=== PATIENT | female | born 1935 | race Caucasian/White ===

== ENCOUNTER 2017-10-22 13:04 | Inpatient (IN) | payer OTHER ==
[2017-10-22 14:38] LABS: ADD MAN DIFF? NO
[2017-10-22 14:42] LABS: WHITE BLOOD COUNT 20.5 10^3/ul (4.8-10.8)
[2017-10-22 14:42] LABS: BASOPHIL # 0.1 10^3/ul (0.0-0.1); BASOPHILS % 0.4 % (0.0-2.0); EOSINOPHILS # 0.3 10^3/ul (0.0-0.5); EOSINOPHILS % 1.6 % (0.0-7.0); HEMATOCRIT 27.7 % (37.0-47.0); HEMOGLOBIN 8.8 g/dl (12.0-16.0); LYMPHOCYTES # 1.3 10^3/ul (0.8-2.9); LYMPHOCYTES % 6.2 % (15.0-51.0); MEAN CORPUSCULAR HEMOGLOBIN 28.2 pg (29.0-33.0); MEAN CORPUSCULAR HGB CONC 31.8 g/dl (32.0-37.0); MEAN CORPUSCULAR VOLUME 88.8 fl (82.0-101.0); MONOCYTE # 1.1 10^3/ul (0.3-0.9); MONOCYTES % 5.4 % (0.0-11.0); NEUTROPHIL # 17.6 10^3/ul (1.6-7.5); NEUTROPHILS % 85.6 % (39.0-77.0); PLATELET COUNT 631 10^3/UL (140-415); RED BLOOD COUNT 3.12 10^6/ul (4.20-5.40); RED CELL DISTRIBUTION WIDTH 13.5 % (11.5-14.5)
[2017-10-22] MEDS: SOD CHLORIDE 0.9% 500 ML IV (14:47)
[2017-10-22] MEDS: CEFTRIAXONE 1 GM/50 ML (PMX) 50 ML IVPB (14:47)
[2017-10-22 14:59] LABS: ALANINE AMINOTRANSFERASE 43 IU/L (13-69); ALBUMIN 3.7 g/dl (3.3-4.9); ALBUMIN/GLOBULIN RATIO 0.92; ALKALINE PHOSPHATASE 122 IU/L (42-121); ANION GAP 16 (8-16); ASPARTATE AMINO TRANSFERASE 31 IU/L (15-46); BILIRUBIN,INDIRECT 0.5 mg/dl (0-1.1); BILIRUBIN,TOTAL 0.5 mg/dl (0.2-1.3); BLOOD UREA NITROGEN 11 mg/dl (7-20); CALCIUM 9.1 mg/dl (8.4-10.2); CARBON DIOXIDE 22 mmol/L (21-31); CHLORIDE 104 mmol/L (97-110); CREATININE 0.77 mg/dl (0.44-1.00); GLUCOSE 263 mg/dl (70-220); LIPASE 72 U/L (23-300); POTASSIUM 4.4 mmol/L (3.5-5.1); SODIUM 138 mmol/L (135-144); TOTAL PROTEIN 7.7 g/dl (6.1-8.1)
[2017-10-22 15:04] LABS: INR 1.07; PARTIAL THROMBOPLASTIN TIME 21.1 Sec (25.0-35.0); PT RATIO 1.1
[2017-10-22] MEDS: ASPIRIN 81 MG TAB PO (15:41)
[2017-10-22] MEDS: VANCOMYCIN 1 GM (PMX) 250 ML IVPB (16:11)
[2017-10-22] MEDS ORDERED: HEPARIN 1000 UNITS/ML 10 ML INJ IV (16:30)
[2017-10-22] MEDS ORDERED: NACL 0.9% 3 ML SYG IV (16:30)
[2017-10-22] MEDS ORDERED: VANCOMYCIN IV PER PHARMACY XX (16:30)
[2017-10-22] MEDS ORDERED: HEPARIN 25000 UNITS/250 ML 250 ML IV (16:30)
[2017-10-22] MEDS ORDERED: ONDANSETRON 4 MG INJ IV (16:30)
[2017-10-22] MEDS ORDERED: NITROGLYCERIN (SL) 0.4 MG TAB SL (16:30)
[2017-10-22 17:48] LABS: CREATINE KINASE 280 IU/L (23-200)
[2017-10-22 18:01] LABS: CK INDEX 1.6; CK-MB 4.53 ng/ml (0.0-2.4)
[2017-10-22] MEDS: HEPARIN 1000 UNITS/ML 10 ML INJ IV (18:06)
[2017-10-22 18:15] LABS: % IRON SATURATION 11 % SAT (22-52); IRON 24 ug/dl (35-150); TOTAL IRON BINDING CAPACITY 223 ug/dl (241-421)
[2017-10-22 18:27] LABS: HEMOGLOBIN A1C 8.4 % (0-5.9)
[2017-10-22] MEDS ORDERED: GLUCAGON 1 MG INJ IM (18:30)
[2017-10-22] MEDS ORDERED: DEXTROSE 50% 50 ML SYRINGE IV ×2 (18:30)
[2017-10-22] MEDS ORDERED: GLUCOSE GEL 15 GRAM TUBE BUCCAL (18:30)
[2017-10-22] MEDS ORDERED: GLUCOSE GEL 15 GRAM TUBE PO ×2 (18:30)
[2017-10-22 18:50] LABS: THYROID STIMULATING HORMONE 0.407 MIU/L (0.465-4.680)
[2017-10-22 20:07] LABS: CREATINE KINASE 228 IU/L (23-200)
[2017-10-22 20:25] LABS: CK INDEX 1.7; CK-MB 3.94 ng/ml (0.0-2.4)
[2017-10-22 20:27] LABS: TROPONIN-I 0.881 ng/ml (0.000-0.120)
[2017-10-22] MEDS: GABAPENTIN 100 MG CAP PO (21:00)
[2017-10-22] MEDS: RANITIDINE 150 MG TAB PO (21:00)
[2017-10-22] MEDS: CALCIUM/VITAMIN D (500/200) TAB PO (21:00)
[2017-10-22] MEDS: ATORVASTATIN 40 MG TAB PO (21:00)
[2017-10-22] MEDS: INSULIN ASPART [NOVOLOG] 3 ML PEN SC (21:07)
[2017-10-22] MEDS: PIPER-TAZO 2.25 GM (PMX) 50 ML IVPB (22:53)
[2017-10-22] MEDS: morphine 2 MG INJ IV (23:15)
[2017-10-23] MEDS: PIPER-TAZO 2.25 GM (PMX) 50 ML IVPB ×3 (05:34→22:47)
[2017-10-23] MEDS: ACETAMINOPHEN 325 MG TAB PO ×2 (05:35→21:01)
[2017-10-23] MEDS: LEVOTHYROXINE 100 MCG TAB PO (07:05)
[2017-10-23] MEDS: INSULIN ASPART [NOVOLOG] 3 ML PEN SC ×4 (08:22→21:07)
[2017-10-23] MEDS: ASPIRIN (EC) 81 MG TAB PO (08:29)
[2017-10-23] MEDS: CALCIUM/VITAMIN D (500/200) TAB PO ×2 (08:29→21:01)
[2017-10-23] MEDS: FERROUS SULFATE (EC) 325 MG TAB PO (08:29)
[2017-10-23] MEDS: GABAPENTIN 100 MG CAP PO ×3 (08:29→21:01)
[2017-10-23] MEDS: LISINOPRIL 5 MG TAB PO (08:30)
[2017-10-23] MEDS: RANITIDINE 150 MG TAB PO ×2 (08:30→21:01)
[2017-10-23 08:37] LABS: ADD MAN DIFF? NO
[2017-10-23 08:42] LABS: WHITE BLOOD COUNT 16.3 10^3/ul (4.8-10.8)
[2017-10-23 08:42] LABS: BASOPHIL # 0.1 10^3/ul (0.0-0.1); BASOPHILS % 0.4 % (0.0-2.0); EOSINOPHILS # 0.4 10^3/ul (0.0-0.5); EOSINOPHILS % 2.6 % (0.0-7.0); HEMATOCRIT 22.4 % (37.0-47.0); HEMOGLOBIN 7.2 g/dl (12.0-16.0); LYMPHOCYTES # 1.2 10^3/ul (0.8-2.9); LYMPHOCYTES % 7.2 % (15.0-51.0); MEAN CORPUSCULAR HEMOGLOBIN 27.8 pg (29.0-33.0); MEAN CORPUSCULAR HGB CONC 32.1 g/dl (32.0-37.0); MEAN CORPUSCULAR VOLUME 86.5 fl (82.0-101.0); MEAN PLATELET VOLUME 8.9 fl (7.4-10.4); MONOCYTE # 0.9 10^3/ul (0.3-0.9); MONOCYTES % 5.3 % (0.0-11.0); NEUTROPHIL # 13.6 10^3/ul (1.6-7.5); NEUTROPHILS % 83.5 % (39.0-77.0); PLATELET COUNT 529 10^3/UL (140-415); RED BLOOD COUNT 2.59 10^6/ul (4.20-5.40); RED CELL DISTRIBUTION WIDTH 13.5 % (11.5-14.5)
[2017-10-23 09:00] LABS: ANION GAP 14 (8-16); BLOOD UREA NITROGEN 10 mg/dl (7-20); CALCIUM 8.4 mg/dl (8.4-10.2); CARBON DIOXIDE 22 mmol/L (21-31); CHLORIDE 106 mmol/L (97-110); GLUCOSE 160 mg/dl (70-220); MAGNESIUM 1.9 mg/dl (1.7-2.5); POTASSIUM 4.4 mmol/L (3.5-5.1); SODIUM 138 mmol/L (135-144)
[2017-10-23 09:04] LABS: CREATINE KINASE 177 IU/L (23-200)
[2017-10-23 09:08] LABS: CK INDEX 1.9; CK-MB 3.39 ng/ml (0.0-2.4)
[2017-10-23 09:12] LABS: TROPONIN-I 0.674 ng/ml (0.000-0.120)
[2017-10-23] MEDS: VANCOMYCIN 1 GM (PMX) 250 ML IVPB (10:45)
[2017-10-23] MEDS: morphine 2 MG INJ IV ×3 (11:25→22:47)
[2017-10-23] MEDS ORDERED: HYDROCODONE/APAP (5/325) TAB PO (16:00)
[2017-10-23] MEDS ORDERED: VANCOMYCIN 750 MG in SOD CHLORIDE 0.9% 150 ML IVPB (16:00)
[2017-10-23] MEDS: HYDROCODONE/APAP (10/325) TAB PO (17:26)
[2017-10-23] MEDS: ATORVASTATIN 40 MG TAB PO (20:51)
[2017-10-23] MEDS: INSULIN GLARGINE [LANtus] 3 ML PEN SC (21:09)
[2017-10-23 23:00] LABS: IMMEDIATE SPIN CROSSMATCH 1 2
[2017-10-24 06:08] LABS: ADD MAN DIFF? NO
[2017-10-24 06:22] LABS: WHITE BLOOD COUNT 16.5 10^3/ul (4.8-10.8)
[2017-10-24 06:22] LABS: BASOPHIL # 0.1 10^3/ul (0.0-0.1); BASOPHILS % 0.4 % (0.0-2.0); EOSINOPHILS # 0.6 10^3/ul (0.0-0.5); EOSINOPHILS % 3.3 % (0.0-7.0); HEMATOCRIT 29.6 % (37.0-47.0); HEMOGLOBIN 9.8 g/dl (12.0-16.0); LYMPHOCYTES # 1.6 10^3/ul (0.8-2.9); LYMPHOCYTES % 9.8 % (15.0-51.0); MEAN CORPUSCULAR HEMOGLOBIN 29.3 pg (29.0-33.0); MEAN CORPUSCULAR HGB CONC 33.1 g/dl (32.0-37.0); MEAN CORPUSCULAR VOLUME 88.6 fl (82.0-101.0); MEAN PLATELET VOLUME 9.3 fl (7.4-10.4); MONOCYTES % 6.2 % (0.0-11.0); NEUTROPHIL # 13.1 10^3/ul (1.6-7.5); NEUTROPHILS % 79.6 % (39.0-77.0); PLATELET COUNT 548 10^3/UL (140-415); RED BLOOD COUNT 3.34 10^6/ul (4.20-5.40); RED CELL DISTRIBUTION WIDTH 13.6 % (11.5-14.5)
[2017-10-24] MEDS: ACETAMINOPHEN 325 MG TAB PO (06:34)
[2017-10-24] MEDS: LEVOTHYROXINE 100 MCG TAB PO (06:34)
[2017-10-24] MEDS: PIPER-TAZO 2.25 GM (PMX) 50 ML IVPB ×3 (06:34→21:00)
[2017-10-24 06:53] LABS: ALBUMIN 3.2 g/dl (3.3-4.9); ANION GAP 16 (8-16); BLOOD UREA NITROGEN 9 mg/dl (7-20); CALCIUM 8.6 mg/dl (8.4-10.2); CARBON DIOXIDE 24 mmol/L (21-31); CHLORIDE 103 mmol/L (97-110); CREATININE 0.67 mg/dl (0.44-1.00); GLUCOSE 161 mg/dl (70-220); MAGNESIUM 2.2 mg/dl (1.7-2.5); PHOSPHORUS 2.8 mg/dl (2.5-4.9); POTASSIUM 4.4 mmol/L (3.5-5.1); SODIUM 139 mmol/L (135-144)
[2017-10-24] MEDS: ASPIRIN (EC) 81 MG TAB PO (08:22)
[2017-10-24] MEDS: FERROUS SULFATE (EC) 325 MG TAB PO (08:23)
[2017-10-24] MEDS: GABAPENTIN 100 MG CAP PO ×3 (08:23→20:51)
[2017-10-24] MEDS: RANITIDINE 150 MG TAB PO ×2 (08:23→20:51)
[2017-10-24] MEDS: CALCIUM/VITAMIN D (500/200) TAB PO ×2 (08:23→20:51)
[2017-10-24] MEDS: morphine 2 MG INJ IV ×2 (08:24→21:59)
[2017-10-24] MEDS: INSULIN ASPART [NOVOLOG] 3 ML PEN SC ×4 (08:35→20:55)
[2017-10-24] MEDS: VANCOMYCIN 1 GM (PMX) 250 ML IVPB (10:31)
[2017-10-24] MEDS: SOD CHLORIDE 0.9% 100 ML (11:38)
[2017-10-24] MEDS: IOHEXOL 100 ML (11:38)
[2017-10-24] MEDS: morphine LIQ (10 MG/5 ML) CUP PO (18:07)
[2017-10-24] MEDS: KETOROLAC 30 MG INJ IV (19:40)
[2017-10-24] MEDS: ATORVASTATIN 40 MG TAB PO (20:51)
[2017-10-24] MEDS: INSULIN GLARGINE [LANtus] 3 ML PEN SC (20:55)
[2017-10-25] MEDS: morphine 2 MG INJ IV ×3 (04:19→22:40)
[2017-10-25] MEDS: PIPER-TAZO 2.25 GM (PMX) 50 ML IVPB ×3 (06:37→21:00)
[2017-10-25] MEDS: LEVOTHYROXINE 100 MCG TAB PO (06:37)
[2017-10-25 07:49] LABS: ADD MAN DIFF? NO
[2017-10-25 07:53] LABS: BASOPHIL # 0.1 10^3/ul (0.0-0.1); BASOPHILS % 0.4 % (0.0-2.0); EOSINOPHILS # 0.4 10^3/ul (0.0-0.5); EOSINOPHILS % 2.8 % (0.0-7.0); HEMATOCRIT 25.4 % (37.0-47.0); HEMOGLOBIN 8.3 g/dl (12.0-16.0); LYMPHOCYTES # 1.3 10^3/ul (0.8-2.9); LYMPHOCYTES % 8.3 % (15.0-51.0); MEAN CORPUSCULAR HEMOGLOBIN 28.6 pg (29.0-33.0); MEAN CORPUSCULAR HGB CONC 32.7 g/dl (32.0-37.0); MEAN CORPUSCULAR VOLUME 87.6 fl (82.0-101.0); MEAN PLATELET VOLUME 9.1 fl (7.4-10.4); MONOCYTE # 0.9 10^3/ul (0.3-0.9); MONOCYTES % 5.6 % (0.0-11.0); NEUTROPHIL # 13.2 10^3/ul (1.6-7.5); NEUTROPHILS % 82.3 % (39.0-77.0); PLATELET COUNT 551 10^3/UL (140-415); RED CELL DISTRIBUTION WIDTH 13.7 % (11.5-14.5)
[2017-10-25 08:16] LABS: ALBUMIN 2.9 g/dl (3.3-4.9); ANION GAP 11 (8-16); BLOOD UREA NITROGEN 10 mg/dl (7-20); CALCIUM 8.2 mg/dl (8.4-10.2); CARBON DIOXIDE 25 mmol/L (21-31); CHLORIDE 107 mmol/L (97-110); CREATININE 0.74 mg/dl (0.44-1.00); GLUCOSE 121 mg/dl (70-220); MAGNESIUM 2.1 mg/dl (1.7-2.5); PHOSPHORUS 2.7 mg/dl (2.5-4.9); POTASSIUM 3.9 mmol/L (3.5-5.1); SODIUM 139 mmol/L (135-144)
[2017-10-25] MEDS: GABAPENTIN 100 MG CAP PO ×3 (08:17→20:59)
[2017-10-25] MEDS: FERROUS SULFATE (EC) 325 MG TAB PO (08:17)
[2017-10-25] MEDS: RANITIDINE 150 MG TAB PO ×2 (08:17→20:59)
[2017-10-25] MEDS: ASPIRIN (EC) 81 MG TAB PO (08:17)
[2017-10-25] MEDS: CALCIUM/VITAMIN D (500/200) TAB PO ×2 (08:17→20:59)
[2017-10-25] MEDS: INSULIN ASPART [NOVOLOG] 3 ML PEN SC ×5 (08:19→20:54)
[2017-10-25 09:58] LABS: VANCOMYCIN,TROUGH 10.3 ug/ml (10.0-20.0)
[2017-10-25] MEDS: VANCOMYCIN 1 GM (PMX) 250 ML IVPB (10:44)
[2017-10-25] MEDS: SOD FERRIC GLUC COMPLX 125 MG in SOD CHLORIDE 0.9% 100 ML IVPB (15:48)
[2017-10-25] MEDS: INSULIN GLARGINE [LANtus] 3 ML PEN SC (20:53)
[2017-10-25] MEDS: ACETAMINOPHEN 325 MG TAB PO (20:59)
[2017-10-25] MEDS: ATORVASTATIN 40 MG TAB PO (20:59)
[2017-10-25] MEDS: VANCOMYCIN 750 MG in SOD CHLORIDE 0.9% 150 ML IVPB (22:40)
[2017-10-26] MEDS: LEVOTHYROXINE 100 MCG TAB PO (06:32)
[2017-10-26] MEDS: PIPER-TAZO 2.25 GM (PMX) 50 ML IVPB ×3 (06:32→22:25)
[2017-10-26] MEDS: morphine 2 MG INJ IV ×3 (06:42→20:18)
[2017-10-26] MEDS: INSULIN ASPART [NOVOLOG] 3 ML PEN SC ×7 (07:59→20:19)
[2017-10-26] MEDS: GABAPENTIN 100 MG CAP PO ×4 (08:29→20:19)
[2017-10-26] MEDS: CALCIUM/VITAMIN D (500/200) TAB PO ×2 (08:29→20:19)
[2017-10-26] MEDS: FERROUS SULFATE (EC) 325 MG TAB PO (08:29)
[2017-10-26] MEDS: ASPIRIN (EC) 81 MG TAB PO (08:29)
[2017-10-26] MEDS: RANITIDINE 150 MG TAB PO ×2 (08:33→20:19)
[2017-10-26] MEDS: SODIUM HYPOCHLORITE (1/40) 1 APPLIC BTL IRR ×2 (08:37→20:19)
[2017-10-26 09:02] LABS: ADD MAN DIFF? NO
[2017-10-26 09:21] LABS: BASOPHIL # 0.1 10^3/ul (0.0-0.1); BASOPHILS % 0.4 % (0.0-2.0); EOSINOPHILS # 0.3 10^3/ul (0.0-0.5); EOSINOPHILS % 1.8 % (0.0-7.0); HEMATOCRIT 26.5 % (37.0-47.0); HEMOGLOBIN 8.6 g/dl (12.0-16.0); LYMPHOCYTES # 1.3 10^3/ul (0.8-2.9); LYMPHOCYTES % 7.5 % (15.0-51.0); MEAN CORPUSCULAR HEMOGLOBIN 28.9 pg (29.0-33.0); MEAN CORPUSCULAR HGB CONC 32.5 g/dl (32.0-37.0); MEAN CORPUSCULAR VOLUME 88.9 fl (82.0-101.0); MEAN PLATELET VOLUME 9.3 fl (7.4-10.4); MONOCYTES % 5.8 % (0.0-11.0); NEUTROPHIL # 14.1 10^3/ul (1.6-7.5); NEUTROPHILS % 83.9 % (39.0-77.0); PLATELET COUNT 614 10^3/UL (140-415); RED BLOOD COUNT 2.98 10^6/ul (4.20-5.40); RED CELL DISTRIBUTION WIDTH 13.8 % (11.5-14.5)
[2017-10-26 09:21] LABS: WHITE BLOOD COUNT 16.8 10^3/ul (4.8-10.8)
[2017-10-26 09:30] LABS: ANION GAP 16 (8-16); BLOOD UREA NITROGEN 7 mg/dl (7-20); CALCIUM 8.5 mg/dl (8.4-10.2); CARBON DIOXIDE 24 mmol/L (21-31); CHLORIDE 106 mmol/L (97-110); CREATININE 0.71 mg/dl (0.44-1.00); GLUCOSE 102 mg/dl (70-220); MAGNESIUM 2.3 mg/dl (1.7-2.5); PHOSPHORUS 2.8 mg/dl (2.5-4.9); POTASSIUM 3.6 mmol/L (3.5-5.1); SODIUM 142 mmol/L (135-144)
[2017-10-26] MEDS: VANCOMYCIN 750 MG in SOD CHLORIDE 0.9% 150 ML IVPB ×2 (10:03→23:02)
[2017-10-26] MEDS: REGADENOSON 0.4 MG/5 ML SYG (12:35)
[2017-10-26] MEDS: SOD FERRIC GLUC COMPLX 125 MG in SOD CHLORIDE 0.9% 100 ML IVPB (16:59)
[2017-10-26] MEDS: ATORVASTATIN 40 MG TAB PO (20:19)
[2017-10-26] MEDS: INSULIN GLARGINE [LANtus] 3 ML PEN SC (20:19)
[2017-10-27] MEDS: morphine 2 MG INJ IV ×4 (00:02→16:40)
[2017-10-27] MEDS: PIPER-TAZO 2.25 GM (PMX) 50 ML IVPB ×3 (05:39→22:22)
[2017-10-27] MEDS: LEVOTHYROXINE 100 MCG TAB PO (06:43)
[2017-10-27] MEDS: INSULIN ASPART [NOVOLOG] 3 ML PEN SC ×7 (08:00→20:43)
[2017-10-27] MEDS: SODIUM HYPOCHLORITE (1/40) 1 APPLIC BTL IRR ×2 (08:02→20:55)
[2017-10-27 09:02] LABS: ADD MAN DIFF? NO
[2017-10-27 09:10] LABS: WHITE BLOOD COUNT 15.9 10^3/ul (4.8-10.8)
[2017-10-27 09:10] LABS: BASOPHIL # 0.1 10^3/ul (0.0-0.1); BASOPHILS % 0.4 % (0.0-2.0); EOSINOPHILS # 0.4 10^3/ul (0.0-0.5); EOSINOPHILS % 2.5 % (0.0-7.0); HEMOGLOBIN 8.8 g/dl (12.0-16.0); LYMPHOCYTES # 1.7 10^3/ul (0.8-2.9); LYMPHOCYTES % 10.5 % (15.0-51.0); MEAN CORPUSCULAR HEMOGLOBIN 28.7 pg (29.0-33.0); MEAN CORPUSCULAR HGB CONC 32.6 g/dl (32.0-37.0); MEAN CORPUSCULAR VOLUME 87.9 fl (82.0-101.0); MONOCYTES % 6.2 % (0.0-11.0); NEUTROPHIL # 12.7 10^3/ul (1.6-7.5); NEUTROPHILS % 79.9 % (39.0-77.0); PLATELET COUNT 555 10^3/UL (140-415); RED BLOOD COUNT 3.07 10^6/ul (4.20-5.40); RED CELL DISTRIBUTION WIDTH 14.2 % (11.5-14.5)
[2017-10-27 09:29] LABS: ANION GAP 13 (8-16); BLOOD UREA NITROGEN 7 mg/dl (7-20); CALCIUM 8.3 mg/dl (8.4-10.2); CARBON DIOXIDE 25 mmol/L (21-31); CHLORIDE 103 mmol/L (97-110); CREATININE 0.74 mg/dl (0.44-1.00); GLUCOSE 112 mg/dl (70-220); MAGNESIUM 2.1 mg/dl (1.7-2.5); PHOSPHORUS 2.7 mg/dl (2.5-4.9); POTASSIUM 4.2 mmol/L (3.5-5.1); SODIUM 137 mmol/L (135-144)
[2017-10-27 09:31] LABS: VANCOMYCIN,TROUGH 16.6 ug/ml (10.0-20.0)
[2017-10-27] MEDS: RANITIDINE 150 MG TAB PO ×2 (09:44→20:36)
[2017-10-27] MEDS: ASPIRIN (EC) 81 MG TAB PO (09:44)
[2017-10-27] MEDS: CALCIUM/VITAMIN D (500/200) TAB PO ×2 (09:44→20:37)
[2017-10-27] MEDS: FERROUS SULFATE (EC) 325 MG TAB PO (09:44)
[2017-10-27] MEDS: GABAPENTIN 100 MG CAP PO ×3 (09:44→20:36)
[2017-10-27] MEDS: VANCOMYCIN 750 MG in SOD CHLORIDE 0.9% 150 ML IVPB ×2 (12:12→22:42)
[2017-10-27] MEDS: SOD FERRIC GLUC COMPLX 125 MG in SOD CHLORIDE 0.9% 100 ML IVPB (16:35)
[2017-10-27] MEDS: CLOPIDOGREL 75 MG TAB PO (16:35)
[2017-10-27] MEDS: METOPROLOL 25 MG TAB PO (20:36)
[2017-10-27] MEDS: ATORVASTATIN 40 MG TAB PO (20:36)
[2017-10-27] MEDS: morphine LIQ (10 MG/5 ML) CUP PO (20:37)
[2017-10-27] MEDS: INSULIN GLARGINE [LANtus] 3 ML PEN SC (20:50)
[2017-10-28] MEDS: morphine LIQ (10 MG/5 ML) CUP PO ×2 (00:48→08:30)
[2017-10-28] MEDS: PIPER-TAZO 2.25 GM (PMX) 50 ML IVPB ×3 (06:20→21:07)
[2017-10-28] MEDS: LEVOTHYROXINE 100 MCG TAB PO (06:21)
[2017-10-28 07:50] LABS: ADD MAN DIFF? NO
[2017-10-28 07:51] LABS: BASOPHIL # 0.1 10^3/ul (0.0-0.1); BASOPHILS % 0.4 % (0.0-2.0); EOSINOPHILS # 0.4 10^3/ul (0.0-0.5); EOSINOPHILS % 2.5 % (0.0-7.0); HEMATOCRIT 27.2 % (37.0-47.0); HEMOGLOBIN 8.9 g/dl (12.0-16.0); LYMPHOCYTES # 1.2 10^3/ul (0.8-2.9); LYMPHOCYTES % 7.6 % (15.0-51.0); MEAN CORPUSCULAR HEMOGLOBIN 28.5 pg (29.0-33.0); MEAN CORPUSCULAR HGB CONC 32.7 g/dl (32.0-37.0); MEAN CORPUSCULAR VOLUME 87.2 fl (82.0-101.0); MEAN PLATELET VOLUME 8.7 fl (7.4-10.4); MONOCYTES % 6.4 % (0.0-11.0); NEUTROPHIL # 13.4 10^3/ul (1.6-7.5); NEUTROPHILS % 82.3 % (39.0-77.0); PLATELET COUNT 569 10^3/UL (140-415); RED BLOOD COUNT 3.12 10^6/ul (4.20-5.40)
[2017-10-28 07:51] LABS: WHITE BLOOD COUNT 16.3 10^3/ul (4.8-10.8)
[2017-10-28] MEDS: INSULIN ASPART [NOVOLOG] 3 ML PEN SC ×7 (08:00→20:50)
[2017-10-28] MEDS: METOPROLOL 25 MG TAB PO ×2 (08:30→20:44)
[2017-10-28] MEDS: RANITIDINE 150 MG TAB PO ×2 (08:30→20:44)
[2017-10-28] MEDS: ASPIRIN (EC) 81 MG TAB PO (08:30)
[2017-10-28] MEDS: FERROUS SULFATE (EC) 325 MG TAB PO (08:30)
[2017-10-28] MEDS: GABAPENTIN 100 MG CAP PO ×3 (08:30→20:44)
[2017-10-28] MEDS: CLOPIDOGREL 75 MG TAB PO (08:30)
[2017-10-28] MEDS: CALCIUM/VITAMIN D (500/200) TAB PO ×2 (08:30→20:44)
[2017-10-28 08:31] LABS: ANION GAP 16 (8-16); BLOOD UREA NITROGEN 6 mg/dl (7-20); CALCIUM 8.6 mg/dl (8.4-10.2); CARBON DIOXIDE 24 mmol/L (21-31); CHLORIDE 102 mmol/L (97-110); CREATININE 0.72 mg/dl (0.44-1.00); GLUCOSE 105 mg/dl (70-220); POTASSIUM 3.9 mmol/L (3.5-5.1); SODIUM 138 mmol/L (135-144)
[2017-10-28] MEDS: SODIUM HYPOCHLORITE (1/40) 1 APPLIC BTL IRR ×2 (08:31→20:50)
[2017-10-28 08:48] LABS: PHOSPHORUS 2.8 mg/dl (2.5-4.9)
[2017-10-28] MEDS: VANCOMYCIN 750 MG in SOD CHLORIDE 0.9% 150 ML IVPB ×2 (09:38→21:09)
[2017-10-28] MEDS: morphine 2 MG INJ IV (18:10)
[2017-10-28] MEDS: ATORVASTATIN 40 MG TAB PO (20:44)
[2017-10-28] MEDS: INSULIN GLARGINE [LANtus] 3 ML PEN SC (20:50)
[2017-10-29] MEDS: morphine 2 MG INJ IV ×4 (02:13→19:04)
[2017-10-29] MEDS: PIPER-TAZO 2.25 GM (PMX) 50 ML IVPB ×3 (05:22→21:20)
[2017-10-29] MEDS: LEVOTHYROXINE 100 MCG TAB PO (06:04)
[2017-10-29 07:15] LABS: ADD MAN DIFF? NO
[2017-10-29 07:28] LABS: WHITE BLOOD COUNT 14.3 10^3/ul (4.8-10.8)
[2017-10-29 07:28] LABS: BASOPHIL # 0.1 10^3/ul (0.0-0.1); BASOPHILS % 0.5 % (0.0-2.0); EOSINOPHILS # 0.5 10^3/ul (0.0-0.5); EOSINOPHILS % 3.2 % (0.0-7.0); HEMATOCRIT 27.9 % (37.0-47.0); LYMPHOCYTES # 1.2 10^3/ul (0.8-2.9); LYMPHOCYTES % 8.7 % (15.0-51.0); MEAN CORPUSCULAR HEMOGLOBIN 28.6 pg (29.0-33.0); MEAN CORPUSCULAR HGB CONC 32.3 g/dl (32.0-37.0); MEAN CORPUSCULAR VOLUME 88.6 fl (82.0-101.0); MEAN PLATELET VOLUME 10.3 fl (7.4-10.4); MONOCYTE # 0.9 10^3/ul (0.3-0.9); MONOCYTES % 6.3 % (0.0-11.0); NEUTROPHIL # 11.5 10^3/ul (1.6-7.5); NEUTROPHILS % 80.5 % (39.0-77.0); RED BLOOD COUNT 3.15 10^6/ul (4.20-5.40); RED CELL DISTRIBUTION WIDTH 14.3 % (11.5-14.5)
[2017-10-29 07:29] LABS: PLATELET COUNT 429 10^3/UL (140-415); POSITIVE DIFF @See below
[2017-10-29 07:43] LABS: ANION GAP 14 (8-16); BLOOD UREA NITROGEN 8 mg/dl (7-20); CALCIUM 8.5 mg/dl (8.4-10.2); CARBON DIOXIDE 22 mmol/L (21-31); CHLORIDE 106 mmol/L (97-110); CREATININE 0.69 mg/dl (0.44-1.00); GLUCOSE 116 mg/dl (70-220); PHOSPHORUS 2.9 mg/dl (2.5-4.9); POTASSIUM 4.9 mmol/L (3.5-5.1); SODIUM 137 mmol/L (135-144)
[2017-10-29] MEDS: INSULIN ASPART [NOVOLOG] 3 ML PEN SC ×7 (08:00→21:00)
[2017-10-29] MEDS: SODIUM HYPOCHLORITE (1/40) 1 APPLIC BTL IRR ×2 (08:52→21:00)
[2017-10-29] MEDS: GABAPENTIN 100 MG CAP PO ×3 (08:53→21:20)
[2017-10-29] MEDS: CALCIUM/VITAMIN D (500/200) TAB PO ×2 (08:53→21:19)
[2017-10-29] MEDS: CLOPIDOGREL 75 MG TAB PO (08:53)
[2017-10-29] MEDS: RANITIDINE 150 MG TAB PO ×2 (08:53→21:19)
[2017-10-29] MEDS: FERROUS SULFATE (EC) 325 MG TAB PO (08:53)
[2017-10-29] MEDS: ASPIRIN (EC) 81 MG TAB PO (08:53)
[2017-10-29] MEDS: METOPROLOL 25 MG TAB PO ×2 (08:53→21:20)
[2017-10-29 10:00] LABS: VANCOMYCIN,TROUGH 18.4 ug/ml (10.0-20.0)
[2017-10-29] MEDS: VANCOMYCIN 750 MG in SOD CHLORIDE 0.9% 150 ML IVPB (10:00)
[2017-10-29] MEDS ORDERED: HEPARIN 1000 UNITS/ML 10 ML INJ (11:26)
[2017-10-29] MEDS ORDERED: MIDAZOLAM 1 MG/ML 2 ML INJ (11:26)
[2017-10-29] MEDS ORDERED: LIDOCAINE 1% (MDV) 10 ML INJ (11:26)
[2017-10-29] MEDS ORDERED: IODIXANOL LOCM 100 ML BTL (11:26)
[2017-10-29] MEDS ORDERED: FENTAnyl 50 MCG/ML VIAL (11:26)
[2017-10-29] MEDS ORDERED: HEPARIN 1000 UNITS/NS (A-LINE) 1,000 ML (11:26)
[2017-10-29] MEDS ORDERED: NITROGLYCERIN (IC) 100 MCG/ML INJ (11:59)
[2017-10-29] MEDS: LACTATED RINGER'S 1,000 ML IV (13:19)
[2017-10-29] MEDS: VANCOMYCIN 500MG/NS (PMX) 100 ML IVPB (13:39)
[2017-10-29] MEDS: ATORVASTATIN 40 MG TAB PO (21:19)
[2017-10-29] MEDS: INSULIN GLARGINE [LANtus] 3 ML PEN SC (21:26)
[2017-10-30] MEDS: VANCOMYCIN 500MG/NS (PMX) 100 ML IVPB ×2 (00:56→12:02)
[2017-10-30] MEDS: morphine 2 MG INJ IV ×4 (01:12→23:27)
[2017-10-30] MEDS: PIPER-TAZO 2.25 GM (PMX) 50 ML IVPB ×3 (05:42→21:52)
[2017-10-30] MEDS: LEVOTHYROXINE 100 MCG TAB PO (05:45)
[2017-10-30 06:45] LABS: ADD MAN DIFF? NO
[2017-10-30 06:48] LABS: BASOPHIL # 0.1 10^3/ul (0.0-0.1); BASOPHILS % 0.4 % (0.0-2.0); EOSINOPHILS # 0.4 10^3/ul (0.0-0.5); EOSINOPHILS % 2.9 % (0.0-7.0); HEMATOCRIT 29.2 % (37.0-47.0); HEMOGLOBIN 9.6 g/dl (12.0-16.0); LYMPHOCYTES # 1.2 10^3/ul (0.8-2.9); LYMPHOCYTES % 9.5 % (15.0-51.0); MEAN CORPUSCULAR HEMOGLOBIN 29.1 pg (29.0-33.0); MEAN CORPUSCULAR HGB CONC 32.9 g/dl (32.0-37.0); MEAN CORPUSCULAR VOLUME 88.5 fl (82.0-101.0); MEAN PLATELET VOLUME 10.8 fl (7.4-10.4); MONOCYTE # 0.9 10^3/ul (0.3-0.9); MONOCYTES % 6.6 % (0.0-11.0); NEUTROPHIL # 10.3 10^3/ul (1.6-7.5); NEUTROPHILS % 80.1 % (39.0-77.0); RED CELL DISTRIBUTION WIDTH 14.2 % (11.5-14.5)
[2017-10-30 06:48] LABS: WHITE BLOOD COUNT 12.9 10^3/ul (4.8-10.8)
[2017-10-30 06:51] LABS: PLATELET COUNT 328 10^3/UL (140-415); POSITIVE DIFF @See below
[2017-10-30 07:38] LABS: ANION GAP 14 (8-16); BLOOD UREA NITROGEN 13 mg/dl (7-20); CALCIUM 8.2 mg/dl (8.4-10.2); CARBON DIOXIDE 24 mmol/L (21-31); CHLORIDE 101 mmol/L (97-110); CREATININE 0.65 mg/dl (0.44-1.00); GLUCOSE 188 mg/dl (70-220); MAGNESIUM 1.9 mg/dl (1.7-2.5); PHOSPHORUS 2.6 mg/dl (2.5-4.9); POTASSIUM 4.4 mmol/L (3.5-5.1); SODIUM 135 mmol/L (135-144)
[2017-10-30] MEDS: INSULIN ASPART [NOVOLOG] 3 ML PEN SC ×7 (08:50→20:52)
[2017-10-30] MEDS: SODIUM HYPOCHLORITE (1/40) 1 APPLIC BTL IRR ×2 (08:51→20:50)
[2017-10-30] MEDS: GABAPENTIN 100 MG CAP PO (08:52)
[2017-10-30] MEDS: FERROUS SULFATE (EC) 325 MG TAB PO (08:53)
[2017-10-30] MEDS: CALCIUM/VITAMIN D (500/200) TAB PO ×2 (08:53→20:40)
[2017-10-30] MEDS: ASPIRIN (EC) 81 MG TAB PO (08:53)
[2017-10-30] MEDS: RANITIDINE 150 MG TAB PO ×2 (08:53→20:40)
[2017-10-30] MEDS: CLOPIDOGREL 75 MG TAB PO (08:53)
[2017-10-30] MEDS: METOPROLOL 25 MG TAB PO ×2 (08:54→20:41)
[2017-10-30] MEDS: GABAPENTIN 300 MG CAP PO ×2 (13:36→20:40)
[2017-10-30] MEDS: ATORVASTATIN 40 MG TAB PO (20:40)
[2017-10-30] MEDS: ACETAMINOPHEN 325 MG TAB PO (20:41)
[2017-10-30] MEDS: INSULIN GLARGINE [LANtus] 3 ML PEN SC (20:50)
[2017-10-31 01:20] LABS: VANCOMYCIN,TROUGH 13.1 ug/ml (10.0-20.0)
[2017-10-31] MEDS: VANCOMYCIN 500MG/NS (PMX) 100 ML IVPB ×2 (01:35→12:29)
[2017-10-31] MEDS: PIPER-TAZO 2.25 GM (PMX) 50 ML IVPB ×3 (06:04→22:30)
[2017-10-31] MEDS: LEVOTHYROXINE 100 MCG TAB PO (06:04)
[2017-10-31] MEDS: INSULIN ASPART [NOVOLOG] 3 ML PEN SC ×7 (08:00→21:00)
[2017-10-31] MEDS: CLOPIDOGREL 75 MG TAB PO (08:48)
[2017-10-31] MEDS: FERROUS SULFATE (EC) 325 MG TAB PO (08:48)
[2017-10-31] MEDS: RANITIDINE 150 MG TAB PO ×2 (08:48→20:22)
[2017-10-31] MEDS: CALCIUM/VITAMIN D (500/200) TAB PO ×2 (08:48→20:24)
[2017-10-31] MEDS: GABAPENTIN 300 MG CAP PO ×3 (08:48→20:22)
[2017-10-31] MEDS: ASPIRIN (EC) 81 MG TAB PO (08:48)
[2017-10-31] MEDS: OXYCODONE/ACETAMINOPHEN (10/325) TAB PO (08:49)
[2017-10-31] MEDS: METOPROLOL 25 MG TAB PO ×2 (08:49→20:27)
[2017-10-31 09:00] LABS: ADD MAN DIFF? NO
[2017-10-31 09:13] LABS: WHITE BLOOD COUNT 12.3 10^3/ul (4.8-10.8)
[2017-10-31 09:13] LABS: BASOPHILS % 0.3 % (0.0-2.0); EOSINOPHILS # 0.6 10^3/ul (0.0-0.5); EOSINOPHILS % 4.7 % (0.0-7.0); HEMATOCRIT 31.3 % (37.0-47.0); HEMOGLOBIN 9.9 g/dl (12.0-16.0); LYMPHOCYTES # 1.4 10^3/ul (0.8-2.9); LYMPHOCYTES % 11.1 % (15.0-51.0); MEAN CORPUSCULAR HEMOGLOBIN 28.4 pg (29.0-33.0); MEAN CORPUSCULAR HGB CONC 31.6 g/dl (32.0-37.0); MEAN CORPUSCULAR VOLUME 89.7 fl (82.0-101.0); MONOCYTE # 0.8 10^3/ul (0.3-0.9); MONOCYTES % 6.6 % (0.0-11.0); NEUTROPHIL # 9.4 10^3/ul (1.6-7.5); NEUTROPHILS % 76.7 % (39.0-77.0); PLATELET COUNT 528 10^3/UL (140-415); RED BLOOD COUNT 3.49 10^6/ul (4.20-5.40); RED CELL DISTRIBUTION WIDTH 14.4 % (11.5-14.5)
[2017-10-31 09:40] LABS: ANION GAP 12 (8-16); BLOOD UREA NITROGEN 13 mg/dl (7-20); CALCIUM 8.8 mg/dl (8.4-10.2); CARBON DIOXIDE 27 mmol/L (21-31); CHLORIDE 106 mmol/L (97-110); CREATININE 0.73 mg/dl (0.44-1.00); GLUCOSE 116 mg/dl (70-220); PHOSPHORUS 2.6 mg/dl (2.5-4.9); SODIUM 141 mmol/L (135-144)
[2017-10-31] MEDS: SODIUM HYPOCHLORITE (1/40) 1 APPLIC BTL IRR ×2 (10:08→20:28)
[2017-10-31] MEDS: morphine 2 MG INJ IV ×2 (10:09→18:11)
[2017-10-31] MEDS: ATORVASTATIN 40 MG TAB PO (20:22)
[2017-10-31] MEDS: INSULIN GLARGINE [LANtus] 3 ML PEN SC (20:49)
[2017-11-01] MEDS: morphine 2 MG INJ IV ×4 (00:13→20:49)
[2017-11-01] MEDS: VANCOMYCIN 500MG/NS (PMX) 100 ML IVPB ×2 (00:14→12:10)
[2017-11-01] MEDS: PIPER-TAZO 2.25 GM (PMX) 50 ML IVPB ×3 (06:14→21:27)
[2017-11-01] MEDS: LEVOTHYROXINE 100 MCG TAB PO (06:15)
[2017-11-01] MEDS: INSULIN ASPART [NOVOLOG] 3 ML PEN SC ×7 (08:00→20:59)
[2017-11-01] MEDS: RANITIDINE 150 MG TAB PO ×2 (08:53→20:47)
[2017-11-01] MEDS: FERROUS SULFATE (EC) 325 MG TAB PO (08:53)
[2017-11-01] MEDS: CLOPIDOGREL 75 MG TAB PO (08:53)
[2017-11-01] MEDS: CALCIUM/VITAMIN D (500/200) TAB PO ×2 (08:53→20:47)
[2017-11-01] MEDS: GABAPENTIN 300 MG CAP PO ×3 (08:54→20:47)
[2017-11-01] MEDS: SODIUM HYPOCHLORITE (1/40) 1 APPLIC BTL IRR ×2 (08:55→20:48)
[2017-11-01] MEDS: METOPROLOL 25 MG TAB PO ×2 (08:55→20:48)
[2017-11-01] MEDS: ASPIRIN (EC) 81 MG TAB PO (08:55)
[2017-11-01] MEDS: ATORVASTATIN 40 MG TAB PO (20:47)
[2017-11-01] MEDS: INSULIN GLARGINE [LANtus] 3 ML PEN SC (20:59)
[2017-11-02] MEDS: VANCOMYCIN 500MG/NS (PMX) 100 ML IVPB ×2 (00:17→12:16)
[2017-11-02] MEDS: morphine 2 MG INJ IV ×4 (01:49→19:46)
[2017-11-02] MEDS: PIPER-TAZO 2.25 GM (PMX) 50 ML IVPB ×3 (05:24→21:36)
[2017-11-02] MEDS: LEVOTHYROXINE 100 MCG TAB PO (06:02)
[2017-11-02] MEDS ORDERED: PROPOFOL 200 MG INJ (07:00)
[2017-11-02 07:42] LABS: ADD MAN DIFF? NO
[2017-11-02 07:47] LABS: BASOPHIL # 0.1 10^3/ul (0.0-0.1); BASOPHILS % 0.4 % (0.0-2.0); EOSINOPHILS # 0.6 10^3/ul (0.0-0.5); EOSINOPHILS % 3.9 % (0.0-7.0); HEMATOCRIT 31.9 % (37.0-47.0); HEMOGLOBIN 10.1 g/dl (12.0-16.0); LYMPHOCYTES # 1.9 10^3/ul (0.8-2.9); LYMPHOCYTES % 12.6 % (15.0-51.0); MEAN CORPUSCULAR HEMOGLOBIN 27.8 pg (29.0-33.0); MEAN CORPUSCULAR HGB CONC 31.7 g/dl (32.0-37.0); MEAN CORPUSCULAR VOLUME 87.9 fl (82.0-101.0); MONOCYTE # 0.8 10^3/ul (0.3-0.9); NEUTROPHIL # 11.8 10^3/ul (1.6-7.5); NEUTROPHILS % 77.6 % (39.0-77.0); PLATELET COUNT 546 10^3/UL (140-415); RED BLOOD COUNT 3.63 10^6/ul (4.20-5.40); RED CELL DISTRIBUTION WIDTH 14.4 % (11.5-14.5)
[2017-11-02 07:47] LABS: WHITE BLOOD COUNT 15.1 10^3/ul (4.8-10.8)
[2017-11-02] MEDS: INSULIN ASPART [NOVOLOG] 3 ML PEN SC ×7 (07:55→20:37)
[2017-11-02] MEDS: SODIUM HYPOCHLORITE (1/40) 1 APPLIC BTL IRR ×2 (07:56→19:45)
[2017-11-02] MEDS: METOPROLOL 25 MG TAB PO ×2 (07:58→20:39)
[2017-11-02] MEDS: GABAPENTIN 300 MG CAP PO ×3 (08:05→20:38)
[2017-11-02] MEDS: ASPIRIN (EC) 81 MG TAB PO (08:05)
[2017-11-02] MEDS: CLOPIDOGREL 75 MG TAB PO (08:05)
[2017-11-02] MEDS: RANITIDINE 150 MG TAB PO ×2 (08:05→20:40)
[2017-11-02] MEDS: FERROUS SULFATE (EC) 325 MG TAB PO (08:05)
[2017-11-02] MEDS: CALCIUM/VITAMIN D (500/200) TAB PO ×2 (08:05→20:38)
[2017-11-02 08:09] LABS: ANION GAP 12 (8-16); BLOOD UREA NITROGEN 12 mg/dl (7-20); CALCIUM 9.1 mg/dl (8.4-10.2); CARBON DIOXIDE 27 mmol/L (21-31); CHLORIDE 103 mmol/L (97-110); CREATININE 0.75 mg/dl (0.44-1.00); GLUCOSE 91 mg/dl (70-220); MAGNESIUM 2.1 mg/dl (1.7-2.5); POTASSIUM 4.1 mmol/L (3.5-5.1); SODIUM 138 mmol/L (135-144)
[2017-11-02 08:29] LABS: PHOSPHORUS 3.4 mg/dl (2.5-4.9)
[2017-11-02] MEDS ORDERED: ROPIVACAINE 0.5 % 30 ML VIAL (09:47)
[2017-11-02] MEDS ORDERED: MIDAZOLAM 1 MG/ML 2 ML INJ (09:50)
[2017-11-02] MEDS: POLYMYXIN/BACITRACIN 1L IRRIG (10:32)
[2017-11-02] MEDS ORDERED: hydrALAzine 20 MG INJ IV (11:30)
[2017-11-02] MEDS ORDERED: ONDANSETRON 4 MG INJ IV (11:30)
[2017-11-02] MEDS ORDERED: ALBUTEROL 0.083% (NEB) 2.5 MG/3 ML AMP HHN (11:30)
[2017-11-02] MEDS ORDERED: EPHEDrine SULFATE 50 MG/5 ML SYG IV (11:30)
[2017-11-02] MEDS ORDERED: morphine (1 MG/ML) 10ML SYRINGE IV ×3 (11:30)
[2017-11-02] MEDS ORDERED: OXYCODONE/ACETAMINOPHEN (5/325) TAB PO ×2 (11:30)
[2017-11-02] MEDS ORDERED: MEPERIDINE 25 MG INJ IV (11:30)
[2017-11-02] MEDS ORDERED: METOCLOPRAMIDE 10 MG INJ IV (11:30)
[2017-11-02] MEDS ORDERED: LABETALOL HCL 20MG INJ IV (11:30)
[2017-11-02] MEDS ORDERED: DIPHENHYDRAMINE 50 MG INJ IV (11:30)
[2017-11-02] MEDS ORDERED: MIDAZOLAM 1 MG/ML 2 ML INJ IV (11:30)
[2017-11-02] MEDS: ATORVASTATIN 40 MG TAB PO (20:40)
[2017-11-02] MEDS: INSULIN GLARGINE [LANtus] 3 ML PEN SC (20:45)
[2017-11-03 01:07] LABS: VANCOMYCIN,TROUGH 14.8 ug/ml (10.0-20.0)
[2017-11-03] MEDS: morphine 2 MG INJ IV ×5 (01:18→23:54)
[2017-11-03] MEDS: VANCOMYCIN 500MG/NS (PMX) 100 ML IVPB ×2 (01:20→12:01)
[2017-11-03] MEDS: PIPER-TAZO 2.25 GM (PMX) 50 ML IVPB ×2 (05:16→13:46)
[2017-11-03] MEDS: LEVOTHYROXINE 100 MCG TAB PO (06:43)
[2017-11-03 07:49] LABS: ADD MAN DIFF? NO
[2017-11-03 07:59] LABS: BASOPHIL # 0.1 10^3/ul (0.0-0.1); BASOPHILS % 0.5 % (0.0-2.0); EOSINOPHILS # 0.3 10^3/ul (0.0-0.5); EOSINOPHILS % 2.2 % (0.0-7.0); HEMATOCRIT 31.1 % (37.0-47.0); HEMOGLOBIN 9.9 g/dl (12.0-16.0); LYMPHOCYTES % 8.4 % (15.0-51.0); MEAN CORPUSCULAR HGB CONC 31.8 g/dl (32.0-37.0); MEAN CORPUSCULAR VOLUME 87.9 fl (82.0-101.0); MONOCYTE # 0.8 10^3/ul (0.3-0.9); MONOCYTES % 6.5 % (0.0-11.0); NEUTROPHIL # 9.8 10^3/ul (1.6-7.5); PLATELET COUNT 489 10^3/UL (140-415); RED BLOOD COUNT 3.54 10^6/ul (4.20-5.40); RED CELL DISTRIBUTION WIDTH 14.2 % (11.5-14.5)
[2017-11-03] MEDS: SODIUM HYPOCHLORITE (1/40) 1 APPLIC BTL IRR ×2 (08:10→21:00)
[2017-11-03] MEDS: INSULIN ASPART [NOVOLOG] 3 ML PEN SC ×7 (08:23→21:00)
[2017-11-03] MEDS: RANITIDINE 150 MG TAB PO ×2 (08:26→21:36)
[2017-11-03] MEDS: GABAPENTIN 300 MG CAP PO ×3 (08:27→21:36)
[2017-11-03] MEDS: FERROUS SULFATE (EC) 325 MG TAB PO (08:27)
[2017-11-03] MEDS: CALCIUM/VITAMIN D (500/200) TAB PO ×2 (08:27→21:36)
[2017-11-03] MEDS: ASPIRIN (EC) 81 MG TAB PO (08:27)
[2017-11-03] MEDS: METOPROLOL 25 MG TAB PO ×3 (08:27→23:55)
[2017-11-03] MEDS: CLOPIDOGREL 75 MG TAB PO (08:27)
[2017-11-03] MEDS: INSULIN GLARGINE [LANtus] 3 ML PEN SC (21:31)
[2017-11-03] MEDS: ATORVASTATIN 40 MG TAB PO (21:36)
[2017-11-03] MEDS: ACETAMINOPHEN 325 MG TAB PO (21:40)
[2017-11-03] MEDS ORDERED: VANCOMYCIN IV PER PHARMACY XX (22:00)
[2017-11-03] MEDS: MEROPENEM 500MG/50 ML (PMX) 50 ML IVPB (22:38)
[2017-11-03 23:01] LABS: ADD UMIC YES; UR ASCORBIC ACID NEGATIVE (NEGATIVE); UR BILIRUBIN (Dip) NEGATIVE (NEGATIVE); UR BLOOD (Dip) NEGATIVE (NEGATIVE); UR CLARITY CLEAR (CLEAR); UR COLOR YELLOW (YELLOW); UR GLUCOSE (Dip) NEGATIVE (NEGATIVE); UR KETONES (Dip) NEGATIVE (NEGATIVE); UR LEUKOCYTE ESTERASE (Dip) 1+ Leu/ul (NEGATIVE); UR NITRITE (Dip) NEGATIVE (NEGATIVE); UR RBC 0 /HPF (0-5); UR TOTAL PROTEIN (Dip) NEGATIVE (NEGATIVE); UR UROBILINOGEN (Dip) NEGATIVE (NEGATIVE); UR WBC 8 /HPF (0-5)
[2017-11-04] MEDS: VANCOMYCIN 500MG/NS (PMX) 100 ML IVPB ×2 (01:04→12:08)
[2017-11-04] MEDS: morphine 2 MG INJ IV ×2 (04:28→09:53)
[2017-11-04] MEDS: LEVOTHYROXINE 100 MCG TAB PO (06:32)
[2017-11-04] MEDS: SODIUM HYPOCHLORITE (1/40) 1 APPLIC BTL IRR ×2 (07:23→19:59)
[2017-11-04] MEDS: INSULIN ASPART [NOVOLOG] 3 ML PEN SC ×7 (08:00→20:01)
[2017-11-04] MEDS: FERROUS SULFATE (EC) 325 MG TAB PO (08:16)
[2017-11-04] MEDS: ASPIRIN (EC) 81 MG TAB PO (08:16)
[2017-11-04] MEDS: METOPROLOL 25 MG TAB PO ×2 (08:17→20:02)
[2017-11-04] MEDS: MEROPENEM 500MG/50 ML (PMX) 50 ML IVPB ×2 (08:17→20:01)
[2017-11-04] MEDS: RANITIDINE 150 MG TAB PO ×2 (08:17→20:01)
[2017-11-04] MEDS: CALCIUM/VITAMIN D (500/200) TAB PO ×2 (08:17→20:01)
[2017-11-04] MEDS: CLOPIDOGREL 75 MG TAB PO (08:17)
[2017-11-04] MEDS: GABAPENTIN 300 MG CAP PO ×3 (08:17→20:02)
[2017-11-04 11:26] LABS: ADD MAN DIFF? NO
[2017-11-04 11:31] LABS: BASOPHIL # 0.1 10^3/ul (0.0-0.1); BASOPHILS % 0.8 % (0.0-2.0); EOSINOPHILS # 0.6 10^3/ul (0.0-0.5); HEMATOCRIT 32.3 % (37.0-47.0); LYMPHOCYTES # 1.3 10^3/ul (0.8-2.9); MEAN CORPUSCULAR HEMOGLOBIN 27.5 pg (29.0-33.0); MEAN CORPUSCULAR VOLUME 88.7 fl (82.0-101.0); MEAN PLATELET VOLUME 9.5 fl (7.4-10.4); MONOCYTES % 8.8 % (0.0-11.0); NEUTROPHIL # 8.5 10^3/ul (1.6-7.5); NEUTROPHILS % 73.8 % (39.0-77.0); PLATELET COUNT 503 10^3/UL (140-415); RED BLOOD COUNT 3.64 10^6/ul (4.20-5.40); RED CELL DISTRIBUTION WIDTH 14.5 % (11.5-14.5)
[2017-11-04 11:31] LABS: WHITE BLOOD COUNT 11.5 10^3/ul (4.8-10.8)
[2017-11-04 12:09] LABS: ANION GAP 16 (8-16); BLOOD UREA NITROGEN 12 mg/dl (7-20); CALCIUM 8.8 mg/dl (8.4-10.2); CARBON DIOXIDE 22 mmol/L (21-31); CHLORIDE 104 mmol/L (97-110); CREATININE 0.67 mg/dl (0.44-1.00); GLUCOSE 201 mg/dl (70-220); POTASSIUM 4.8 mmol/L (3.5-5.1); SODIUM 137 mmol/L (135-144)
[2017-11-04] MEDS: SENNA/DOCUSATE NA (8.6MG/50MG) TAB PO (16:15)
[2017-11-04] MEDS: morphine LIQ (10 MG/5 ML) CUP PO ×2 (16:15→21:28)
[2017-11-04] MEDS: ACETAMINOPHEN 325 MG TAB PO (17:34)
[2017-11-04] MEDS: INSULIN GLARGINE [LANtus] 3 ML PEN SC (19:58)
[2017-11-04] MEDS: ATORVASTATIN 40 MG TAB PO (20:01)
[2017-11-05] MEDS: VANCOMYCIN 500MG/NS (PMX) 100 ML IVPB ×2 (00:44→14:15)
[2017-11-05] MEDS: DOCUSATE SODIUM 100 MG CAP PO (05:21)
[2017-11-05] MEDS: LEVOTHYROXINE 100 MCG TAB PO (05:22)
[2017-11-05] MEDS: morphine LIQ (10 MG/5 ML) CUP PO (07:21)
[2017-11-05] MEDS: OXYCODONE/ACETAMINOPHEN (10/325) TAB PO ×2 (08:37→12:18)
[2017-11-05] MEDS: GABAPENTIN 300 MG CAP PO ×2 (08:39→12:18)
[2017-11-05] MEDS: SENNA/DOCUSATE NA (8.6MG/50MG) TAB PO (08:39)
[2017-11-05] MEDS: CLOPIDOGREL 75 MG TAB PO (08:40)
[2017-11-05] MEDS: FERROUS SULFATE (EC) 325 MG TAB PO (08:40)
[2017-11-05] MEDS: RANITIDINE 150 MG TAB PO (08:40)
[2017-11-05] MEDS: ASPIRIN (EC) 81 MG TAB PO (08:41)
[2017-11-05] MEDS: CALCIUM/VITAMIN D (500/200) TAB PO (08:41)
[2017-11-05] MEDS: MEROPENEM 500MG/50 ML (PMX) 50 ML IVPB (08:42)
[2017-11-05] MEDS: METOPROLOL 25 MG TAB PO (08:42)
[2017-11-05] MEDS: INSULIN ASPART [NOVOLOG] 3 ML PEN SC ×6 (08:51→17:34)
[2017-11-05] MEDS: SODIUM HYPOCHLORITE (1/40) 1 APPLIC BTL IRR (08:54)
[2017-11-05 09:26] LABS: ADD MAN DIFF? NO
[2017-11-05 09:32] LABS: BASOPHIL # 0.1 10^3/ul (0.0-0.1); BASOPHILS % 0.7 % (0.0-2.0); EOSINOPHILS # 0.4 10^3/ul (0.0-0.5); EOSINOPHILS % 3.3 % (0.0-7.0); HEMATOCRIT 31.1 % (37.0-47.0); HEMOGLOBIN 9.9 g/dl (12.0-16.0); LYMPHOCYTES # 1.1 10^3/ul (0.8-2.9); LYMPHOCYTES % 8.9 % (15.0-51.0); MEAN CORPUSCULAR HGB CONC 31.8 g/dl (32.0-37.0); MEAN CORPUSCULAR VOLUME 87.9 fl (82.0-101.0); MEAN PLATELET VOLUME 9.1 fl (7.4-10.4); MONOCYTE # 0.8 10^3/ul (0.3-0.9); MONOCYTES % 6.2 % (0.0-11.0); NEUTROPHIL # 10.1 10^3/ul (1.6-7.5); NEUTROPHILS % 80.3 % (39.0-77.0); PLATELET COUNT 563 10^3/UL (140-415); RED BLOOD COUNT 3.54 10^6/ul (4.20-5.40); RED CELL DISTRIBUTION WIDTH 14.3 % (11.5-14.5)
[2017-11-05 09:32] LABS: WHITE BLOOD COUNT 12.6 10^3/ul (4.8-10.8)
[2017-11-05] MEDS: MAGNESIUM HYDROXIDE 30ML CUP PO (12:19)
== END 2017-11-05 20:29 | DRG 853 ==
LOC: E/R 13:04 → MS4 15:53
PROC: 0Y6J0Z1 Detachment at Left Lower Leg, High, Open Approach (ICD-10-PCS; principal; 2017-10-29 11:14)
PROC: B41D1ZZ Fluoroscopy of Aorta and Bilateral Lower Extremity Arteries using Low Osmolar Contrast (ICD-10-PCS; 2017-10-29 11:14)
PROC: 30233N1 Transfusion of Nonautologous Red Blood Cells into Peripheral Vein, Percutaneous Approach (ICD-10-PCS; 2017-10-29 11:14)
DX: A41.9 Sepsis, unspecified organism (principal); I21.4 Non-ST elevation (NSTEMI) myocardial infarction; I70.262 Atherosclerosis of native arteries of extremities with gangrene, left leg; D62 Acute posthemorrhagic anemia; L03.116 Cellulitis of left lower limb; M86.9 Osteomyelitis, unspecified; E11.52 Type 2 diabetes mellitus with diabetic peripheral angiopathy with gangrene; E78.5 Hyperlipidemia, unspecified; I10 Essential (primary) hypertension; K21.9 Gastro-esophageal reflux disease without esophagitis; E11.65 Type 2 diabetes mellitus with hyperglycemia
CPT/HCPCS: 36246; 36430; 71045; 73630-LT; 73718; 75635; 75710; 76937; 78452; 80048; 80053; 80069; 80202; 81001; 82550; 82553; 82962; 83036; 83540; 83690; 83735; 84100; 84443; 84484; 85025; 85610; 85730; 86850; 86900; 86901; 86920; 87040; 87086; 88307; 93005; 93017; 93306; 93922; 93970; 96372; 96374; 96375; 97110; 97162; 97165; 97530; 99291-25

== ENCOUNTER 2017-11-23 14:32 | Emergency (ER) | payer OTHER ==
[2017-11-23 16:33] LABS: ADD MAN DIFF? NO
[2017-11-23 16:36] LABS: BASOPHIL # 0.1 10^3/ul (0.0-0.1); BASOPHILS % 0.7 % (0.0-2.0); EOSINOPHILS # 0.4 10^3/ul (0.0-0.5); EOSINOPHILS % 4.8 % (0.0-7.0); HEMATOCRIT 34.1 % (37.0-47.0); HEMOGLOBIN 10.8 g/dl (12.0-16.0); LYMPHOCYTES # 1.6 10^3/ul (0.8-2.9); LYMPHOCYTES % 18.2 % (15.0-51.0); MEAN CORPUSCULAR HEMOGLOBIN 28.3 pg (29.0-33.0); MEAN CORPUSCULAR HGB CONC 31.7 g/dl (32.0-37.0); MEAN CORPUSCULAR VOLUME 89.3 fl (82.0-101.0); MEAN PLATELET VOLUME 9.1 fl (7.4-10.4); MONOCYTE # 0.5 10^3/ul (0.3-0.9); NEUTROPHIL # 6.2 10^3/ul (1.6-7.5); NEUTROPHILS % 70.1 % (39.0-77.0); PLATELET COUNT 284 10^3/UL (140-415); RED BLOOD COUNT 3.82 10^6/ul (4.20-5.40); RED CELL DISTRIBUTION WIDTH 16.7 % (11.5-14.5)
[2017-11-23 16:36] LABS: WHITE BLOOD COUNT 8.9 10^3/ul (4.8-10.8)
[2017-11-23 16:55] LABS: ANION GAP 16 (8-16); BLOOD UREA NITROGEN 19 mg/dl (7-20); C-REACTIVE PROTEIN 3.3 mg/dl (0.0-0.9); CALCIUM 9.5 mg/dl (8.4-10.2); CARBON DIOXIDE 21 mmol/L (21-31); CHLORIDE 103 mmol/L (97-110); CREATININE 0.61 mg/dl (0.44-1.00); GLUCOSE 190 mg/dl (70-220); POTASSIUM 4.6 mmol/L (3.5-5.1); SODIUM 135 mmol/L (135-144)
[2017-11-23] MEDS: FENTAnyl 50 MCG/ML VIAL IV ×2 (17:08→21:15)
[2017-11-23 17:59] LABS: ERYTHROCYTE SEDIMENTATION RATE 50 mm/Hr (0-30)
== END 2017-11-23 22:00 | disposition home or self-care (01) ==
LOC: E/R 22:00
DX: M79.662 Pain in left lower leg (principal); R70.0 Elevated erythrocyte sedimentation rate; R79.82 Elevated C-reactive protein (CRP); D64.9 Anemia, unspecified; I10 Essential (primary) hypertension; E11.9 Type 2 diabetes mellitus without complications; E03.9 Hypothyroidism, unspecified; Z79.4 Long term (current) use of insulin; Z79.82 Long term (current) use of aspirin; Z79.01 Long term (current) use of anticoagulants
CPT/HCPCS: 73590; 80048; 85025; 85651; 86140; 96374; 96376; 99284-25

== ENCOUNTER 2017-11-30 15:05 | Inpatient (IN) | payer OTHER ==
[2017-11-30 16:13] LABS: ADD MAN DIFF? NO
[2017-11-30 16:22] LABS: BASOPHIL # 0.1 10^3/ul (0.0-0.1); BASOPHILS % 0.5 % (0.0-2.0); EOSINOPHILS # 0.7 10^3/ul (0.0-0.5); EOSINOPHILS % 7.1 % (0.0-7.0); HEMATOCRIT 35.9 % (37.0-47.0); HEMOGLOBIN 11.5 g/dl (12.0-16.0); LYMPHOCYTES # 1.8 10^3/ul (0.8-2.9); MEAN CORPUSCULAR HEMOGLOBIN 29.2 pg (29.0-33.0); MEAN CORPUSCULAR VOLUME 91.1 fl (82.0-101.0); MEAN PLATELET VOLUME 9.4 fl (7.4-10.4); MONOCYTE # 0.5 10^3/ul (0.3-0.9); MONOCYTES % 5.9 % (0.0-11.0); NEUTROPHIL # 6.1 10^3/ul (1.6-7.5); NEUTROPHILS % 66.2 % (39.0-77.0); PLATELET COUNT 263 10^3/UL (140-415); RED BLOOD COUNT 3.94 10^6/ul (4.20-5.40); RED CELL DISTRIBUTION WIDTH 17.2 % (11.5-14.5)
[2017-11-30 16:22] LABS: WHITE BLOOD COUNT 9.2 10^3/ul (4.8-10.8)
[2017-11-30 16:42] LABS: ANION GAP 15 (8-16); BLOOD UREA NITROGEN 18 mg/dl (7-20); CALCIUM 9.6 mg/dl (8.4-10.2); CARBON DIOXIDE 20 mmol/L (21-31); CHLORIDE 106 mmol/L (97-110); CREATININE 0.64 mg/dl (0.44-1.00); GLUCOSE 185 mg/dl (70-220); POTASSIUM 4.3 mmol/L (3.5-5.1); SODIUM 137 mmol/L (135-144)
[2017-11-30 16:53] LABS: TROPONIN-I < 0.010 ng/ml (0.000-0.120)
[2017-11-30] MEDS: PIPER-TAZO 3.375 GM IV (PMX) 100 ML IVPB (17:27)
[2017-11-30] MEDS: ONDANSETRON 4 MG INJ IV (17:34)
[2017-11-30] MEDS: morphine 2 MG INJ IV ×2 (17:34→17:53)
[2017-11-30] MEDS: HYDROCODONE/APAP (5/325) TAB PO (18:11)
[2017-11-30] MEDS: VANCOMYCIN 1 GM (PMX) 250 ML IVPB (18:24)
[2017-11-30] MEDS: POVIDONE IODINE 10% 28.4 GM OINT TOP (21:24)
[2017-11-30 22:29] LABS: CREATINE KINASE 35 IU/L (23-200)
[2017-12-01] MEDS: SOD CHLORIDE 0.45% 1,000 ML IV ×2 (00:30→17:10)
[2017-12-01] MEDS ORDERED: GLUCAGON 1 MG INJ IM (00:30)
[2017-12-01] MEDS ORDERED: GLUCOSE GEL 15 GRAM TUBE BUCCAL (00:30)
[2017-12-01] MEDS ORDERED: VANCOMYCIN IV PER PHARMACY XX (00:30)
[2017-12-01] MEDS ORDERED: DEXTROSE 50% 50 ML SYRINGE IV ×2 (00:30)
[2017-12-01] MEDS ORDERED: GLUCOSE GEL 15 GRAM TUBE PO ×2 (00:30)
[2017-12-01] MEDS: HYDROCODONE/APAP (5/325) TAB PO ×5 (01:00→21:05)
[2017-12-01] MEDS: ACCU-CHEK XX ×2 (02:00→23:17)
[2017-12-01] MEDS: ACETAMINOPHEN 325 MG TAB PO (02:15)
[2017-12-01 03:03] LABS: CK INDEX 0.9; CK-MB 0.32 ng/ml (0.0-2.4); TROPONIN-I < 0.010 ng/ml (0.000-0.120)
[2017-12-01 04:08] LABS: CREATINE KINASE 34 IU/L (23-200)
[2017-12-01 04:21] LABS: CK INDEX 0.9; CK-MB 0.31 ng/ml (0.0-2.4); TROPONIN-I < 0.010 ng/ml (0.000-0.120)
[2017-12-01] MEDS: LEVOTHYROXINE 100 MCG TAB PO (06:24)
[2017-12-01] MEDS ORDERED: INSULIN ASPART [NOVOLOG] 3 ML PEN SC (07:35)
[2017-12-01] MEDS: INSULIN ASPART [NOVOLOG] 3 ML PEN SC ×4 (08:00→21:00)
[2017-12-01] MEDS: RANITIDINE 150 MG TAB PO ×2 (08:27→21:05)
[2017-12-01] MEDS: GABAPENTIN 300 MG CAP PO ×3 (08:27→21:05)
[2017-12-01] MEDS: MAGNESIUM HYDROXIDE 30ML CUP PO (08:27)
[2017-12-01] MEDS: FERROUS SULFATE (EC) 325 MG TAB PO (08:28)
[2017-12-01] MEDS: metFORMIN 500 MG TAB PO ×2 (08:28→17:10)
[2017-12-01] MEDS: CLOPIDOGREL 75 MG TAB PO (08:28)
[2017-12-01] MEDS: CEFEPIME 1GM/50 ML (PMX) 50 ML IVPB (08:28)
[2017-12-01] MEDS: SENNA/DOCUSATE NA (8.6MG/50MG) TAB PO (08:28)
[2017-12-01] MEDS: ASPIRIN (EC) 81 MG TAB PO (08:28)
[2017-12-01] MEDS: CALCIUM/VITAMIN D (500/200) TAB PO ×2 (08:29→21:05)
[2017-12-01] MEDS: METOPROLOL 25 MG TAB PO ×2 (08:30→21:05)
[2017-12-01] MEDS: ENOXAPARIN 40 MG/0.4 ML SYG SC (08:32)
[2017-12-01] MEDS: POVIDONE IODINE 10% 28.4 GM OINT TOP (17:10)
[2017-12-01] MEDS: VANCOMYCIN 750 MG in SOD CHLORIDE 0.9% 150 ML IVPB (17:53)
[2017-12-01] MEDS ORDERED: VANCOMYCIN 1 GM 250 ML IVPB (18:00)
[2017-12-01] MEDS: ATORVASTATIN 40 MG TAB PO (21:05)
[2017-12-01] MEDS: INSULIN GLARGINE [LANTus] (100 UNITS/ML) SYG SC (21:06)
[2017-12-02] MEDS: VANCOMYCIN 750 MG in SOD CHLORIDE 0.9% 150 ML IVPB ×2 (03:23→15:39)
[2017-12-02] MEDS: LEVOTHYROXINE 100 MCG TAB PO (06:04)
[2017-12-02 06:48] LABS: ADD MAN DIFF? NO
[2017-12-02 06:52] LABS: BASOPHILS % 0.5 % (0.0-2.0); EOSINOPHILS # 0.6 10^3/ul (0.0-0.5); EOSINOPHILS % 7.3 % (0.0-7.0); HEMATOCRIT 34.2 % (37.0-47.0); HEMOGLOBIN 10.8 g/dl (12.0-16.0); LYMPHOCYTES # 2.5 10^3/ul (0.8-2.9); LYMPHOCYTES % 29.2 % (15.0-51.0); MEAN CORPUSCULAR HEMOGLOBIN 28.3 pg (29.0-33.0); MEAN CORPUSCULAR HGB CONC 31.6 g/dl (32.0-37.0); MEAN CORPUSCULAR VOLUME 89.5 fl (82.0-101.0); MEAN PLATELET VOLUME 9.9 fl (7.4-10.4); MONOCYTE # 0.6 10^3/ul (0.3-0.9); MONOCYTES % 6.8 % (0.0-11.0); NEUTROPHIL # 4.8 10^3/ul (1.6-7.5); PLATELET COUNT 260 10^3/UL (140-415); RED BLOOD COUNT 3.82 10^6/ul (4.20-5.40); RED CELL DISTRIBUTION WIDTH 17.7 % (11.5-14.5)
[2017-12-02 06:52] LABS: WHITE BLOOD COUNT 8.6 10^3/ul (4.8-10.8)
[2017-12-02 07:17] LABS: ANION GAP 12 (8-16); BLOOD UREA NITROGEN 12 mg/dl (7-20); CALCIUM 9.2 mg/dl (8.4-10.2); CARBON DIOXIDE 21 mmol/L (21-31); CHLORIDE 110 mmol/L (97-110); CREATININE 0.59 mg/dl (0.44-1.00); GLUCOSE 69 mg/dl (70-220); POTASSIUM 4.2 mmol/L (3.5-5.1); SODIUM 139 mmol/L (135-144)
[2017-12-02] MEDS: HYDROCODONE/APAP (5/325) TAB PO ×2 (07:55→15:43)
[2017-12-02] MEDS: INSULIN ASPART [NOVOLOG] 3 ML PEN SC ×4 (08:00→20:26)
[2017-12-02 08:05] LABS: HEMOGLOBIN A1C 6.5 % (0-5.9)
[2017-12-02] MEDS: metFORMIN 500 MG TAB PO ×2 (08:09→17:56)
[2017-12-02] MEDS: POVIDONE IODINE 10% 28.4 GM OINT TOP (09:22)
[2017-12-02] MEDS: CEFEPIME 1GM/50 ML (PMX) 50 ML IVPB (09:23)
[2017-12-02] MEDS: ENOXAPARIN 40 MG/0.4 ML SYG SC (09:27)
[2017-12-02] MEDS: CALCIUM/VITAMIN D (500/200) TAB PO ×2 (09:28→20:32)
[2017-12-02] MEDS: FERROUS SULFATE (EC) 325 MG TAB PO (09:28)
[2017-12-02] MEDS: CLOPIDOGREL 75 MG TAB PO (09:28)
[2017-12-02] MEDS: MAGNESIUM HYDROXIDE 30ML CUP PO (09:28)
[2017-12-02] MEDS: RANITIDINE 150 MG TAB PO ×2 (09:28→20:32)
[2017-12-02] MEDS: GABAPENTIN 300 MG CAP PO ×3 (09:28→20:32)
[2017-12-02] MEDS: SENNA/DOCUSATE NA (8.6MG/50MG) TAB PO (09:28)
[2017-12-02] MEDS: ASPIRIN (EC) 81 MG TAB PO (09:28)
[2017-12-02] MEDS: METOPROLOL 25 MG TAB PO ×2 (09:29→20:37)
[2017-12-02] MEDS: SOD CHLORIDE 0.45% 1,000 ML IV ×2 (09:50→15:39)
[2017-12-02] MEDS: HYDROmorphONE 0.5 MG/0.5 ML SYG IV (10:45)
[2017-12-02] MEDS: RIFAMPIN 300 MG CAP PO (15:39)
[2017-12-02] MEDS: INSULIN GLARGINE [LANTus] (100 UNITS/ML) SYG SC (20:30)
[2017-12-02] MEDS: ATORVASTATIN 40 MG TAB PO (20:32)
[2017-12-03] MEDS: ACCU-CHEK XX (02:00)
[2017-12-03 03:18] LABS: ADD MAN DIFF? NO
[2017-12-03 03:20] LABS: BASOPHILS % 0.6 % (0.0-2.0); EOSINOPHILS # 0.6 10^3/ul (0.0-0.5); EOSINOPHILS % 8.7 % (0.0-7.0); HEMATOCRIT 34.4 % (37.0-47.0); HEMOGLOBIN 10.9 g/dl (12.0-16.0); LYMPHOCYTES # 2.1 10^3/ul (0.8-2.9); LYMPHOCYTES % 30.6 % (15.0-51.0); MEAN CORPUSCULAR HEMOGLOBIN 28.5 pg (29.0-33.0); MEAN CORPUSCULAR HGB CONC 31.7 g/dl (32.0-37.0); MEAN CORPUSCULAR VOLUME 89.8 fl (82.0-101.0); MEAN PLATELET VOLUME 9.5 fl (7.4-10.4); MONOCYTE # 0.6 10^3/ul (0.3-0.9); MONOCYTES % 8.3 % (0.0-11.0); NEUTROPHIL # 3.5 10^3/ul (1.6-7.5); NEUTROPHILS % 51.4 % (39.0-77.0); PLATELET COUNT 263 10^3/UL (140-415); RED BLOOD COUNT 3.83 10^6/ul (4.20-5.40); RED CELL DISTRIBUTION WIDTH 17.7 % (11.5-14.5)
[2017-12-03 03:20] LABS: WHITE BLOOD COUNT 6.9 10^3/ul (4.8-10.8)
[2017-12-03 03:41] LABS: ANION GAP 12 (8-16); BLOOD UREA NITROGEN 11 mg/dl (7-20); CALCIUM 9.4 mg/dl (8.4-10.2); CARBON DIOXIDE 23 mmol/L (21-31); CHLORIDE 109 mmol/L (97-110); CREATININE 0.58 mg/dl (0.44-1.00); GLUCOSE 65 mg/dl (70-220); POTASSIUM 4.5 mmol/L (3.5-5.1); SODIUM 139 mmol/L (135-144)
[2017-12-03 03:46] LABS: VANCOMYCIN,TROUGH 17.8 ug/ml (10.0-20.0)
[2017-12-03] MEDS: VANCOMYCIN 750 MG in SOD CHLORIDE 0.9% 150 ML IVPB (04:00)
[2017-12-03] MEDS: HYDROCODONE/APAP (5/325) TAB PO ×4 (04:00→21:44)
[2017-12-03] MEDS: HYDROmorphONE 0.5 MG/0.5 ML SYG IV ×3 (04:37→23:19)
[2017-12-03] MEDS: LEVOTHYROXINE 100 MCG TAB PO (06:19)
[2017-12-03] MEDS: INSULIN ASPART [NOVOLOG] 3 ML PEN SC ×4 (08:00→21:00)
[2017-12-03] MEDS: METOPROLOL 25 MG TAB PO ×2 (09:00→21:43)
[2017-12-03] MEDS: SENNA/DOCUSATE NA (8.6MG/50MG) TAB PO (09:04)
[2017-12-03] MEDS: RANITIDINE 150 MG TAB PO ×2 (09:04→21:44)
[2017-12-03] MEDS: CLOPIDOGREL 75 MG TAB PO (09:04)
[2017-12-03] MEDS: CALCIUM/VITAMIN D (500/200) TAB PO ×2 (09:04→21:43)
[2017-12-03] MEDS: GABAPENTIN 300 MG CAP PO ×3 (09:04→21:43)
[2017-12-03] MEDS: metFORMIN 500 MG TAB PO ×2 (09:05→17:40)
[2017-12-03] MEDS: MAGNESIUM HYDROXIDE 30ML CUP PO (09:05)
[2017-12-03] MEDS: RIFAMPIN 300 MG CAP PO (09:05)
[2017-12-03] MEDS: FERROUS SULFATE (EC) 325 MG TAB PO (09:05)
[2017-12-03] MEDS: ASPIRIN (EC) 81 MG TAB PO (09:05)
[2017-12-03] MEDS: POVIDONE IODINE 10% 28.4 GM OINT TOP (09:05)
[2017-12-03] MEDS: ENOXAPARIN 40 MG/0.4 ML SYG SC (09:06)
[2017-12-03] MEDS: SOD CHLORIDE 0.45% 1,000 ML IV (14:23)
[2017-12-03] MEDS: VANCOMYCIN 500MG/NS (PMX) 100 ML IVPB (17:40)
[2017-12-03] MEDS: INSULIN GLARGINE [LANTus] (100 UNITS/ML) SYG SC (21:42)
[2017-12-03] MEDS: ATORVASTATIN 40 MG TAB PO (21:43)
[2017-12-04] MEDS: ACCU-CHEK XX (01:59)
[2017-12-04] MEDS: HYDROCODONE/APAP (5/325) TAB PO ×4 (02:03→15:59)
[2017-12-04] MEDS: HYDROmorphONE 0.5 MG/0.5 ML SYG IV ×3 (03:39→12:45)
[2017-12-04] MEDS: VANCOMYCIN 500MG/NS (PMX) 100 ML IVPB ×2 (03:42→17:30)
[2017-12-04] MEDS: LEVOTHYROXINE 100 MCG TAB PO (06:25)
[2017-12-04] MEDS: INSULIN ASPART [NOVOLOG] 3 ML PEN SC ×4 (07:56→21:00)
[2017-12-04] MEDS: MAGNESIUM HYDROXIDE 30ML CUP PO (08:28)
[2017-12-04] MEDS: RIFAMPIN 300 MG CAP PO (08:33)
[2017-12-04] MEDS: FERROUS SULFATE (EC) 325 MG TAB PO (08:33)
[2017-12-04] MEDS: GABAPENTIN 300 MG CAP PO ×3 (08:34→21:54)
[2017-12-04] MEDS: metFORMIN 500 MG TAB PO ×2 (08:34→17:30)
[2017-12-04] MEDS: CLOPIDOGREL 75 MG TAB PO (08:34)
[2017-12-04] MEDS: CALCIUM/VITAMIN D (500/200) TAB PO ×2 (08:34→21:54)
[2017-12-04] MEDS: RANITIDINE 150 MG TAB PO ×2 (08:34→21:54)
[2017-12-04] MEDS: SENNA/DOCUSATE NA (8.6MG/50MG) TAB PO (08:34)
[2017-12-04] MEDS: ASPIRIN (EC) 81 MG TAB PO (08:35)
[2017-12-04] MEDS: METOPROLOL 25 MG TAB PO ×2 (08:35→21:55)
[2017-12-04] MEDS: ENOXAPARIN 40 MG/0.4 ML SYG SC (08:36)
[2017-12-04] MEDS: POVIDONE IODINE 10% 28.4 GM OINT TOP (08:36)
[2017-12-04] MEDS: SOD CHLORIDE 0.45% 1,000 ML IV (10:53)
[2017-12-04] MEDS: HYDROmorphONE 1 MG/ML SYG IV (17:29)
[2017-12-04] MEDS ORDERED: HYDROmorphONE 0.5 MG/0.5 ML SYG IV (19:00)
[2017-12-04] MEDS: ATORVASTATIN 40 MG TAB PO (21:54)
[2017-12-04] MEDS: NYSTATIN 15 GM OINT TOP (21:55)
[2017-12-05] MEDS: HYDROmorphONE 1 MG/ML SYG IV ×5 (00:47→21:23)
[2017-12-05] MEDS: HYDROCODONE/APAP (5/325) TAB PO ×3 (01:48→23:13)
[2017-12-05] MEDS: ACCU-CHEK XX (01:52)
[2017-12-05 03:32] LABS: ADD MAN DIFF? NO
[2017-12-05 03:57] LABS: ANION GAP 15 (8-16); BLOOD UREA NITROGEN 9 mg/dl (7-20); CALCIUM 9.3 mg/dl (8.4-10.2); CARBON DIOXIDE 22 mmol/L (21-31); CHLORIDE 108 mmol/L (97-110); CREATININE 0.55 mg/dl (0.44-1.00); GLUCOSE 92 mg/dl (70-220); POTASSIUM 4.5 mmol/L (3.5-5.1); SODIUM 140 mmol/L (135-144)
[2017-12-05 04:01] LABS: VANCOMYCIN,TROUGH 15.2 ug/ml (10.0-20.0)
[2017-12-05 04:11] LABS: WHITE BLOOD COUNT 6.4 10^3/ul (4.8-10.8)
[2017-12-05 04:11] LABS: BASOPHILS % 0.6 % (0.0-2.0); EOSINOPHILS # 0.6 10^3/ul (0.0-0.5); EOSINOPHILS % 8.7 % (0.0-7.0); HEMATOCRIT 32.7 % (37.0-47.0); HEMOGLOBIN 10.5 g/dl (12.0-16.0); IMMATURE GRANS #M 0.01 10^3/ul; IMMATURE GRANS % (M) 0.2 %; LYMPHOCYTES # 1.5 10^3/ul (0.8-2.9); MEAN CORPUSCULAR HEMOGLOBIN 29.1 pg (29.0-33.0); MEAN CORPUSCULAR HGB CONC 32.1 g/dl (32.0-37.0); MEAN CORPUSCULAR VOLUME 90.6 fl (82.0-101.0); MEAN PLATELET VOLUME 9.9 fl (7.4-10.4); MONOCYTE # 0.4 10^3/ul (0.3-0.9); MONOCYTES % 6.5 % (0.0-11.0); NEUTROPHIL # 3.9 10^3/ul (1.6-7.5); PLATELET COUNT 280 10^3/UL (140-415); RED BLOOD COUNT 3.61 10^6/ul (4.20-5.40); RED CELL DISTRIBUTION WIDTH 17.3 % (11.5-14.5)
[2017-12-05] MEDS: VANCOMYCIN 500MG/NS (PMX) 100 ML IVPB ×2 (04:12→15:43)
[2017-12-05] MEDS: SOD CHLORIDE 0.45% 1,000 ML IV ×2 (04:12→21:10)
[2017-12-05] MEDS: LEVOTHYROXINE 100 MCG TAB PO (06:38)
[2017-12-05] MEDS: metFORMIN 500 MG TAB PO ×3 (08:00→17:49)
[2017-12-05] MEDS: INSULIN ASPART [NOVOLOG] 3 ML PEN SC ×4 (08:00→21:00)
[2017-12-05] MEDS: ASPIRIN (EC) 81 MG TAB PO (08:50)
[2017-12-05] MEDS: GABAPENTIN 300 MG CAP PO ×3 (08:50→23:02)
[2017-12-05] MEDS: RIFAMPIN 300 MG CAP PO (08:50)
[2017-12-05] MEDS: FERROUS SULFATE (EC) 325 MG TAB PO (08:50)
[2017-12-05] MEDS: SENNA/DOCUSATE NA (8.6MG/50MG) TAB PO (08:50)
[2017-12-05] MEDS: RANITIDINE 150 MG TAB PO ×2 (08:50→23:00)
[2017-12-05] MEDS: MAGNESIUM HYDROXIDE 30ML CUP PO (08:50)
[2017-12-05] MEDS: CALCIUM/VITAMIN D (500/200) TAB PO ×2 (08:50→23:01)
[2017-12-05] MEDS: CLOPIDOGREL 75 MG TAB PO (08:50)
[2017-12-05] MEDS: METOPROLOL 25 MG TAB PO ×2 (08:50→23:00)
[2017-12-05] MEDS: POVIDONE IODINE 10% 28.4 GM OINT TOP (08:51)
[2017-12-05] MEDS: ENOXAPARIN 40 MG/0.4 ML SYG SC (08:51)
[2017-12-05] MEDS: NYSTATIN 15 GM OINT TOP ×2 (08:52→23:02)
[2017-12-05] MEDS: LIDOCAINE 1% (MPF) 5 ML VIAL SC (09:45)
[2017-12-05] MEDS: ATORVASTATIN 40 MG TAB PO (23:00)
[2017-12-05] MEDS: ONDANSETRON 4 MG INJ IV (23:04)
[2017-12-06] MEDS: SOD CHLORIDE 0.45% 1,000 ML IV ×2 (00:20→20:59)
[2017-12-06] MEDS: ACCU-CHEK XX (01:33)
[2017-12-06] MEDS: HYDROCODONE/APAP (5/325) TAB PO ×5 (03:57→22:16)
[2017-12-06] MEDS: VANCOMYCIN 500MG/NS (PMX) 100 ML IVPB ×2 (04:20→15:52)
[2017-12-06] MEDS: LEVOTHYROXINE 100 MCG TAB PO (06:21)
[2017-12-06] MEDS: INSULIN ASPART [NOVOLOG] 3 ML PEN SC ×4 (08:00→21:00)
[2017-12-06] MEDS: metFORMIN 500 MG TAB PO ×2 (08:18→17:50)
[2017-12-06] MEDS: ENOXAPARIN 40 MG/0.4 ML SYG SC (09:25)
[2017-12-06] MEDS: RANITIDINE 150 MG TAB PO ×2 (09:26→22:16)
[2017-12-06] MEDS: CLOPIDOGREL 75 MG TAB PO (09:26)
[2017-12-06] MEDS: FERROUS SULFATE (EC) 325 MG TAB PO (09:26)
[2017-12-06] MEDS: CALCIUM/VITAMIN D (500/200) TAB PO ×2 (09:27→22:16)
[2017-12-06] MEDS: MAGNESIUM HYDROXIDE 30ML CUP PO (09:27)
[2017-12-06] MEDS: GABAPENTIN 300 MG CAP PO ×3 (09:27→22:16)
[2017-12-06] MEDS: SENNA/DOCUSATE NA (8.6MG/50MG) TAB PO (09:27)
[2017-12-06] MEDS: METOPROLOL 25 MG TAB PO ×2 (09:27→22:17)
[2017-12-06] MEDS: RIFAMPIN 300 MG CAP PO (09:27)
[2017-12-06] MEDS: ASPIRIN (EC) 81 MG TAB PO (09:27)
[2017-12-06] MEDS: NYSTATIN 15 GM OINT TOP ×2 (09:28→22:26)
[2017-12-06] MEDS: POVIDONE IODINE 10% 28.4 GM OINT TOP (09:28)
[2017-12-06] MEDS: ATORVASTATIN 40 MG TAB PO (22:16)
[2017-12-07] MEDS: ACCU-CHEK XX (01:24)
[2017-12-07] MEDS: VANCOMYCIN 500MG/NS (PMX) 100 ML IVPB ×2 (03:48→15:25)
[2017-12-07 05:54] LABS: BLOOD UREA NITROGEN 12 mg/dl (7-20)
[2017-12-07 05:54] LABS: CREATININE 0.55 mg/dl (0.44-1.00)
[2017-12-07] MEDS: SOD CHLORIDE 0.45% 1,000 ML IV ×3 (06:23→23:10)
[2017-12-07] MEDS: LEVOTHYROXINE 100 MCG TAB PO (06:23)
[2017-12-07] MEDS: INSULIN ASPART [NOVOLOG] 3 ML PEN SC ×4 (08:00→20:47)
[2017-12-07] MEDS: FERROUS SULFATE (EC) 325 MG TAB PO (08:30)
[2017-12-07] MEDS: GABAPENTIN 300 MG CAP PO ×3 (08:30→20:47)
[2017-12-07] MEDS: RANITIDINE 150 MG TAB PO ×2 (08:30→20:47)
[2017-12-07] MEDS: CLOPIDOGREL 75 MG TAB PO (08:30)
[2017-12-07] MEDS: CALCIUM/VITAMIN D (500/200) TAB PO ×2 (08:30→20:47)
[2017-12-07] MEDS: SENNA/DOCUSATE NA (8.6MG/50MG) TAB PO (08:30)
[2017-12-07] MEDS: ASPIRIN (EC) 81 MG TAB PO (08:30)
[2017-12-07] MEDS: RIFAMPIN 300 MG CAP PO (08:31)
[2017-12-07] MEDS: METOPROLOL 25 MG TAB PO ×2 (08:31→20:47)
[2017-12-07] MEDS: MAGNESIUM HYDROXIDE 30ML CUP PO (08:32)
[2017-12-07] MEDS: POVIDONE IODINE 10% 28.4 GM OINT TOP (08:32)
[2017-12-07] MEDS: NYSTATIN 15 GM OINT TOP ×2 (08:32→20:47)
[2017-12-07] MEDS: ENOXAPARIN 40 MG/0.4 ML SYG SC (08:33)
[2017-12-07] MEDS: metFORMIN 500 MG TAB PO ×2 (08:35→17:25)
[2017-12-07] MEDS: HYDROCODONE/APAP (5/325) TAB PO ×3 (10:55→22:52)
[2017-12-07] MEDS: ONDANSETRON 4 MG INJ IV (11:52)
[2017-12-07] MEDS: ATORVASTATIN 40 MG TAB PO (20:46)
[2017-12-08] MEDS: ACCU-CHEK XX (02:00)
[2017-12-08 04:05] LABS: ANION GAP 15 (8-16); BLOOD UREA NITROGEN 7 mg/dl (7-20); CALCIUM 8.9 mg/dl (8.4-10.2); CARBON DIOXIDE 20 mmol/L (21-31); CHLORIDE 107 mmol/L (97-110); CREATININE 0.58 mg/dl (0.44-1.00); GLUCOSE 118 mg/dl (70-220); POTASSIUM 4.3 mmol/L (3.5-5.1); SODIUM 138 mmol/L (135-144)
[2017-12-08 04:10] LABS: VANCOMYCIN,TROUGH 12.8 ug/ml (10.0-20.0)
[2017-12-08] MEDS: VANCOMYCIN 500MG/NS (PMX) 100 ML IVPB ×2 (04:34→15:51)
[2017-12-08] MEDS: LEVOTHYROXINE 100 MCG TAB PO (06:07)
[2017-12-08] MEDS: SOD CHLORIDE 0.45% 1,000 ML IV (06:09)
[2017-12-08] MEDS: INSULIN ASPART [NOVOLOG] 3 ML PEN SC ×3 (08:14→17:30)
[2017-12-08] MEDS: HYDROmorphONE 1 MG/ML SYG IV ×3 (08:15→17:34)
[2017-12-08] MEDS: ENOXAPARIN 40 MG/0.4 ML SYG SC (08:15)
[2017-12-08] MEDS: GABAPENTIN 300 MG CAP PO ×2 (08:21→14:01)
[2017-12-08] MEDS: RIFAMPIN 300 MG CAP PO (08:21)
[2017-12-08] MEDS: metFORMIN 500 MG TAB PO ×2 (08:21→17:32)
[2017-12-08] MEDS: CLOPIDOGREL 75 MG TAB PO (08:21)
[2017-12-08] MEDS: CALCIUM/VITAMIN D (500/200) TAB PO (08:21)
[2017-12-08] MEDS: FERROUS SULFATE (EC) 325 MG TAB PO (08:21)
[2017-12-08] MEDS: RANITIDINE 150 MG TAB PO (08:21)
[2017-12-08] MEDS: ASPIRIN (EC) 81 MG TAB PO (08:22)
[2017-12-08] MEDS: METOPROLOL 25 MG TAB PO (08:22)
[2017-12-08] MEDS: SENNA/DOCUSATE NA (8.6MG/50MG) TAB PO (08:22)
[2017-12-08] MEDS: MAGNESIUM HYDROXIDE 30ML CUP PO (08:26)
[2017-12-08] MEDS: NYSTATIN 15 GM OINT TOP (08:26)
[2017-12-08] MEDS: POVIDONE IODINE 10% 28.4 GM OINT TOP (08:27)
[2017-12-08] MEDS: HYDROCODONE/APAP (5/325) TAB PO (10:59)
[2017-12-08] MEDS ORDERED: LORAZEPAM 0.5 MG TAB PO (11:00)
[2017-12-08] MEDS: ONDANSETRON 4 MG INJ IV (11:00)
[2017-12-08] MEDS: DULOXETINE 30 MG CAP DR PO (11:57)
[2017-12-08] MEDS: ACETAMINOPHEN 325 MG TAB PO (19:12)
== END 2017-12-08 19:30 | DRG 566 ==
LOC: E/R 15:05 → PP2 17:28
PROC: 02HV33Z Insertion of Infusion Device into Superior Vena Cava, Percutaneous Approach (ICD-10-PCS; principal; 2017-12-05)
PROC: B548ZZA Ultrasonography of Superior Vena Cava, Guidance (ICD-10-PCS; 2017-12-05)
DX: T87.44 Infection of amputation stump, left lower extremity (principal); E03.9 Hypothyroidism, unspecified; I10 Essential (primary) hypertension; E78.5 Hyperlipidemia, unspecified; E11.51 Type 2 diabetes mellitus with diabetic peripheral angiopathy without gangrene; E11.649 Type 2 diabetes mellitus with hypoglycemia without coma; F32.9 Major depressive disorder, single episode, unspecified; B95.62 Methicillin resistant Staphylococcus aureus infection as the cause of diseases classified elsewhere; Z79.4 Long term (current) use of insulin; Z79.82 Long term (current) use of aspirin; Z89.512 Acquired absence of left leg below knee
CPT/HCPCS: 36415; 36569; 71045; 76937; 80048; 80202; 82550; 82553; 82565; 82962; 83036; 84484; 84520; 85025; 87070; 93005; 96374; 97166; 99285-25

== ENCOUNTER 2018-02-26 09:28 | Day surgery (SDC) | payer OTHER ==
[~2018-02-26 09:28] MED LIST: CEFAZOLIN 2 GM/50 ML (PMX) 50 ML IVPB
[2018-02-26] MEDS ORDERED: CEFAZOLIN 1 GM INJ (13:29)
[2018-02-26] MEDS ORDERED: PROPOFOL 20 ML (13:29)
[2018-02-26] MEDS ORDERED: morphine SULFATE/PF (10 MG/10 ML) INJ (13:30)
[2018-02-26] MEDS ORDERED: hydrALAzine 20 MG INJ IV (13:30)
[2018-02-26] MEDS ORDERED: ONDANSETRON 4 MG INJ IV (13:30)
[2018-02-26] MEDS ORDERED: METOCLOPRAMIDE 10 MG INJ (13:30)
[2018-02-26] MEDS ORDERED: HYDROmorphONE 1 MG/5 ML IV SYRINGE IV ×3 (13:30)
[2018-02-26] MEDS ORDERED: LABETALOL HCL 20MG INJ IV (13:30)
[2018-02-26] MEDS ORDERED: ONDANSETRON 4 MG INJ (13:30)
[2018-02-26] MEDS ORDERED: FENTAnyl 50 MCG/ML VIAL (13:49)
[2018-02-26] MEDS ORDERED: EPHEDrine SULFATE 50 MG/5 ML SYG (14:00)
[2018-02-26] MEDS: POLYMYXIN/BACITRACIN 1L IRRIG (14:03)
[2018-02-26] MEDS: OXYCODONE/ACETAMINOPHEN (5/325) TAB PO (17:41)
== END 2018-02-26 18:22 | disposition home or self-care (01) ==
LOC: SDS 09:28
DX: T87.81 Dehiscence of amputation stump (principal); Y83.8 Other surgical procedures as the cause of abnormal reaction of the patient, or of later complication, without mention of misadventure at the time of the procedure; M86.8X6 Other osteomyelitis, lower leg; E11.9 Type 2 diabetes mellitus without complications; I10 Essential (primary) hypertension; I73.9 Peripheral vascular disease, unspecified
CPT/HCPCS: 27884; 82962; 87070; 87075; 87102; 87116